=== PATIENT | male | born 1990 | race Caucasian/White ===

== ENCOUNTER 2020-01-25 10:12 | Emergency (ER) | payer BC, OTHER ==
[2020-01-25 11:11] VITALS: BP 139/91
[2020-01-25 11:19] LABS: Influenza A Molecular Negative (Negative); Influenza B Molecular Negative (Negative)
--- NOTE | 2020-01-25 12:27 | ED ---
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 - History of Current Complaint Chief Complaint: UCRespiratory Stated Complaint: COUGH, FEVER, RESPIRATORY Time Seen by Provider: 01/25/20 10:54 Hx Obtained From: Patient Onset/Duration: Lasting Days Initial Severity: Moderate Current Severity: Moderate Pain Intensity: 2 Character: Cough (Productive) Sputum Amount: Small Sputum Color: Yellow Aggravating Factor(s): Nothing Alleviating Factor(s): Nothing - Allergy/Home Medications Allergies/Adverse Reactions: Allergies Allergy/AdvReac Type Severity Reaction Status Date / Time Penicillins Allergy Unknown Verified 01/25/20 10:40 Reaction Details Home Medications: Home Medications Azithromyxin AMALIA (NF) [Z-Amalia (Zithromax) 250 mg tabs #6] 2 tab PO .TODAY, THEN 1 DAILY 5 Days #6 tab 01/25/20 [Rx] Diphenhyd/Phenyleph/Acetaminop [Theraflu Nighttime Powerpod] 1 dose PO ONCE PRN 01/25/20 [History Confirmed 01/25/20] PMH/Surg Hx/FS Hx/Imm Hx Previously Healthy: Yes - Surgical History Surgery Procedure, Year, and Place: ear tubes. adenoids Infectious Disease History: No Infectious Disease History: Denies: Hx Clostridium Difficile, Hx Hepatitis, Hx Human Immunodeficiency Virus (HIV), Hx of Known/Suspected MRSA, Hx Shingles, Hx Tuberculosis, Hx Known/ Suspected VRE, Hx Known/Suspected VRSA, History Other Infectious Disease, Traveled Outside the [place] in Last 30 Days - Family History Known Family History: Positive: Non-Contributory - Social History Occupation: Employed Full-time Alcohol Use: Daily Alcohol Amount: a beer or two a night Substance Use Type: Reports: Marijuana Substance Use Comment - Amount & Last Used: occasional Smoking Status (MU): Former Smoker Amount Used/How Often: 1 ppd Length of Time of Smoking/Using Tobacco: 3 years Have You Smoked in the Last Year: No Review of Systems Positive: Chills Eyes: Negative Positive: Sore Throat, Nasal Discharge Cardiovascular: Negative Respiratory: Negative Positive: Cough Gastrointestinal: Negative Genitourinary: Negative Musculoskeletal: Negative Skin: Negative Neurological/Mental Status: Negative Positive: Headache All Other Systems Reviewed And Are Negative: Yes Physical Exam - Summary Physical Exam Summary: Vital Signs Reviewed: Yes Gen: NAD Eye Exam: Normal Eyes: Positive: Conjunctiva Clear ENT: Normal ENT inspection Neck: Supple Respiratory: Rhonchi with cough Cardiovascular Exam: Normal, RRR, S1, S2 Abdomen: NT/ND Musculoskeletal Exam: Normal Neurological Exam: Normal Psychological Exam: Normal Skin Exam: Normal Vital Signs On Initial Exam: Initial Vitals Temp Pulse Resp BP Pulse Ox 37.2 C 104 18 139/91 98 01/25/20 10:35 01/25/20 10:35 01/25/20 10:35 01/25/20 10:35 01/25/20 10:35 Diagnostics - Vital Signs Vital Signs Temp Pulse Resp BP Pulse Ox 01/25/20 10:35 37.2 C 104 18 139/91 98 - Laboratory Lab Results: Lab Results 01/25/20 01/25/20 Range/Units 11:05 11:07 Influenza A (Rapid) Negative (Negative) Influenza B (Rapid) Negative (Negative) Group A Strep Rapid Negative (Negative) Lab Statement: Any lab studies that have been ordered have been reviewed, and results considered in the medical decision making process. Disposition - Course Assessment/Plan: health Dept advised Covid 19 testing after neg flu and strep test, COVID 19 results sent out and PENDING - Diagnoses Provider Diagnoses: Bronchitis, Acute viral syndrome Discharge ED - Sign-Out/Discharge Documenting (check all that apply): Patient Departure All imaging exams completed and their final reports reviewed: No Studies - Discharge Plan Condition: Stable Disposition: HOME Prescriptions: Azithromyxin AMALIA (NF) [Z-Amalia (Zithromax) 250 mg tabs #6] 2 tab PO .TODAY, THEN 1 DAILY 5 Days #6 tab Patient Education Materials: Acute Bronchitis (ED) Forms: *Work Release - Billing Disposition and Condition Condition: STABLE Disposition: Home
== END 2020-01-25 13:13 | disposition home or self-care (01) ==
LOC: UCEAST 10:12
DX: J20.8 Acute bronchitis due to other specified organisms (principal); Z87.891 Personal history of nicotine dependence
CPT/HCPCS: 87651; 99213; G0463